=== PATIENT | female | born 1960 | race Caucasian/White ===

== ENCOUNTER 2016-09-27 08:49 | Outpatient (CLI) | payer OTHER ==
[2016-09-27 09:07] LABS: Hemoglobin A1c 6.2 % (4.0-6.0)
[2016-09-27 09:09] LABS: Cardiac Risk 3.3 (Less than 4.5)
== END 2016-09-27 08:50 | disposition home or self-care (01) ==
LOC: NAV LABSP 08:49
PROVIDERS: ATTEND Internal Medicine
DX: E78.5 Hyperlipidemia, unspecified (principal); E10.65 Type 1 diabetes mellitus with hyperglycemia
CPT/HCPCS: 36415; 80061; 83036